=== PATIENT | female | born 1990 | race Caucasian/White ===

== ENCOUNTER 2020-07-02 20:01 | Day surgery (SDC) | payer BC ==
[2020-07-02 21:10] LABS: Amnisure Test No Membranes Rupture (No Rupture)
[2020-07-02] MEDS ORDERED: hydrALAZINE 20 MG/ML VIAL SLOW IVP PRN (21:44)
== END 2020-07-02 21:55 | disposition home health service (06) ==
LOC: CSHLD/OP 20:01
PROVIDERS: ATTEND Obstetrics & Gynecology
DX: O99.891 Other specified diseases and conditions complicating pregnancy (principal); N89.8 Other specified noninflammatory disorders of vagina; O34.219 Maternal care for unspecified type scar from previous cesarean delivery; O99.820 Streptococcus B carrier state complicating pregnancy; Z3A.39 39 weeks gestation of pregnancy
CPT/HCPCS: 84112; 99283

== ENCOUNTER 2020-07-06 11:31 | Outpatient (CLI) | payer BC ==
[2020-07-07 04:50] LABS: SARS-CoV-2 PCR by NAA Not Detected (NotDetected)
== END 2020-07-06 11:32 | disposition home or self-care (01) ==
LOC: CSHLAB 11:31
PROVIDERS: ATTEND Obstetrics & Gynecology
DX: Z20.822 Contact with and (suspected) exposure to COVID-19 (principal)
CPT/HCPCS: 87635; U0003; U0005

== ENCOUNTER 2020-07-08 05:30 | Inpatient (IN) | payer BC ==
[2020-07-08] MEDS ORDERED: hydrALAZINE 20 MG/ML VIAL SLOW IVP PRN ×2 (10:34→17:26)
[2020-07-08] MEDS ORDERED: Penicillin G Potassium 5 MILL.UNITS in Sodium Chloride 0.9% 100 ML IVPB SCH (10:34)
[2020-07-08] MEDS ORDERED: Promethazine HCl 25 MG/ML VIAL IM PRN (10:34)
[2020-07-08] MEDS ORDERED: HYDROcodone/Acetaminophen 5/325 mg Tablet PO PRN ×2 (10:34)
[2020-07-08] MEDS ORDERED: Ibuprofen 800 MG TAB PO PRN (10:34)
[2020-07-08] MEDS ORDERED: Ondansetron PF 4 MG/2 ML Vial IVP PRN ×2 (10:34→17:26)
[2020-07-08] MEDS ORDERED: Lidocaine 1% (PF) 30 ML VIAL SC PRN (10:34)
[2020-07-08] MEDS ORDERED: Butorphanol Tartrate 1 MG/ML VIAL SLOW IVP PRN (10:34)
[2020-07-08] MEDS ORDERED: Misoprostol 200 MCG TAB PR PRN (10:34)
[2020-07-08] MEDS ORDERED: Docusate 100 MG CAP PO PRN (10:34)
[2020-07-08] MEDS ORDERED: Diphenoxylate HCl/Atropine Tablet PO PRN ×2 (10:34)
[2020-07-08] MEDS ORDERED: Acetaminophen 500 MG TAB PO PRN (10:34)
[2020-07-08] MEDS ORDERED: Lactated Ringer's 1,000 ML IV SCH (10:34)
[2020-07-08 10:35] VITALS: BMI 25.7
[2020-07-08] MEDS ORDERED: Penicillin G Potassium 5 MILL.UNITS VIAL ONE (10:52)
[2020-07-08 10:58] LABS: Hemoglobin 12.4 g/dL (12.0-15.5); Mean Corpuscular HGB CONC 33.7 g/dL (32.0-36.0); Mean Corpuscular Hemoglobin 29.8 pg (27.0-33.0); Mean Corpuscular Volume 88.5 fl (81.6-98.3); Mean Platelet Volume 11.2 fl (7.4-10.4); Platelet Count 206 10x3/uL (150-450); RBC Distribution Width 13.3 % (11.5-14.5); Red Blood Cell (RBC) Count 4.16 10x6/uL (3.90-5.03); White Blood Cell (WBC) Count 7.7 10x3/uL (3.5-10.5)
[2020-07-08] MEDS ORDERED: NS w/ Oxytocin 30 units 500 ML IV PRN (11:01)
[2020-07-08] MEDS ORDERED: NS w/ Oxytocin 30 units 500 ML IVPB SCH ×2 (11:15)
[2020-07-08] MEDS ORDERED: Fentanyl 4 mcg/Bup 0.1% Cadd 100 ML ONE (11:15)
[2020-07-08 11:32] LABS: Hep B Surf Ag Non-Reactive S/CO (NonReactive)
[2020-07-08 11:33] LABS: Syphilis Antibody Nonreactive (Nonreactive); Syphilis Antibody Index 0.02 S/CO (<1.00 Non-Reactive)
[2020-07-08 11:34] LABS: HBSAg Index 0.16 S/CO (0-0.99)
[2020-07-08] MEDS ORDERED: NS w/ Oxytocin 30 units 500 ML ONE ×2 (12:49→15:25)
[2020-07-08] MEDS: Penicillin G 2.5 MILL.units 2.5 MILL.UNITS in Premix Bag 1 BAG IVPB SCH (14:16)
[2020-07-08] MEDS ORDERED: Bisacodyl 10 MG SUPP PR PRN (17:26)
[2020-07-08] MEDS ORDERED: Lanolin Ointment 7 GM TUBE TOP PRN (17:26)
[2020-07-08] MEDS ORDERED: Zolpidem Tartrate 5 MG TAB PO PRN (17:26)
[2020-07-08] MEDS ORDERED: Adacel (T-DAP) 0.5 ML SYRINGE IM ONE (17:26)
[2020-07-08] MEDS ORDERED: Misoprostol 200 MCG TAB VAG PRN (17:26)
[2020-07-08] MEDS ORDERED: Acetaminophen/Codeine 30-300mg Tablet PO PRN (17:26)
[2020-07-08] MEDS ORDERED: diphenhydrAMINE 25 MG CAP PO PRN (17:26)
[2020-07-08] MEDS ORDERED: Milk Of Magnesia 30 ML UDCUP PO PRN (17:26)
[2020-07-08] MEDS ORDERED: Preparation H Ointment 28 GM TUBE PR PRN (17:26)
[2020-07-08] MEDS ORDERED: Benzocaine-Menthol 82.5 ML CAN TOP PRN (17:26)
[2020-07-08] MEDS ORDERED: Acetaminophen 325 MG TAB PO PRN (17:27)
[2020-07-08] MEDS ORDERED: NS w/ Oxytocin 30 units 500 ML IV SCH (17:45)
[2020-07-08] MEDS ORDERED: Ondansetron PF 4 MG/2 ML Vial ONE (19:02)
[2020-07-08] MEDS: Docusate Calcium (SURFAK) 240 MG CAP PO SCH (23:07)
[2020-07-08] MEDS: Ibuprofen 800 MG TAB PO SCH (23:08)
[2020-07-09] MEDS: Penicillin G 2.5 MILL.units 2.5 MILL.UNITS in Premix Bag 1 BAG IVPB SCH (02:24)
[2020-07-09] MEDS: Ibuprofen 800 MG TAB PO SCH ×2 (05:12→15:50)
[2020-07-09 07:08] LABS: Hemoglobin 8.7 g/dL (12.0-15.5); Mean Corpuscular HGB CONC 33.2 g/dL (32.0-36.0); Mean Corpuscular Hemoglobin 29.7 pg (27.0-33.0); Mean Corpuscular Volume 89.4 fl (81.6-98.3); Mean Platelet Volume 11.3 fl (7.4-10.4); Platelet Count 170 10x3/uL (150-450); RBC Distribution Width 13.8 % (11.5-14.5); Red Blood Cell (RBC) Count 2.93 10x6/uL (3.90-5.03); White Blood Cell (WBC) Count 12.7 10x3/uL (3.5-10.5)
[2020-07-09] MEDS ORDERED: Prenatal Vitamin 1 TAB PO SCH (09:00)
[2020-07-09] MEDS: Ferrous Sulfate 325 MG TAB PO SCH ×2 (09:19→17:14)
[2020-07-09] MEDS: Docusate Calcium (SURFAK) 240 MG CAP PO SCH (09:19)
[2020-07-09] MEDS: Acetaminophen/Codeine 30-300mg Tablet PO PRN ×2 (09:29→17:24)
[2020-07-09 21:40] VITALS: BP 127/59; TEMP 97.6
== END 2020-07-09 20:34 | disposition home or self-care (01) | DRG 806 ==
LOC: CSHLD 09:52 → CSHPP 22:12
PROVIDERS: ADMIT Obstetrics & Gynecology; ATTEND Obstetrics & Gynecology
PROC: 10E0XZZ Delivery of Products of Conception, External Approach (ICD-10-PCS; principal; 2020-07-08)
PROC: 0KQM0ZZ Repair Perineum Muscle, Open Approach (ICD-10-PCS; 2020-07-08)
PROC: 10907ZC Drainage of Amniotic Fluid, Therapeutic from Products of Conception, Via Natural or Artificial Opening (ICD-10-PCS; 2020-07-08)
PROC: 3E033VJ Introduction of Other Hormone into Peripheral Vein, Percutaneous Approach (ICD-10-PCS; 2020-07-08)
DX: O48.0 Post-term pregnancy (principal); O23.593 Infection of other part of genital tract in pregnancy, third trimester; Z37.0 Single live birth; Z3A.40 40 weeks gestation of pregnancy; Z20.822 Contact with and (suspected) exposure to COVID-19; O34.211 Maternal care for low transverse scar from previous cesarean delivery; O99.824 Streptococcus B carrier state complicating childbirth; N76.0 Acute vaginitis; O70.1 Second degree perineal laceration during delivery; Z79.899 Other long term (current) drug therapy
CPT/HCPCS: 36415; 51702; 85027; 86780; 86850; 86900; 86901; 87340; 87635; J2405; J2540; J2590; U0003; U0005

== ENCOUNTER 2023-12-07 09:34 | Inpatient (IN) | payer BC, OTHER ==
[~2023-12-07 09:34] MED LIST: Lidocaine 2% MPF 10 ML AMP (For Epidural Use) ONE
[2023-12-07] MEDS ORDERED: Misoprostol 200 MCG TAB PR PRN (09:37)
[2023-12-07] MEDS ORDERED: fentaNYL 50 mcg/mL 1 mL Vial SLOW IVP PRN (09:37)
[2023-12-07] MEDS ORDERED: Methylergonovine 0.2 MG/ML VIAL IM PRN (09:37)
[2023-12-07] MEDS ORDERED: Carboprost 250 MCG/ML AMP IM PRN (09:37)
[2023-12-07] MEDS ORDERED: Promethazine HCl 25 MG/ML VIAL IM PRN ×2 (09:37→15:52)
[2023-12-07] MEDS ORDERED: hydrALAZINE 20 MG/ML VIAL SLOW IVP PRN ×2 (09:37→20:42)
[2023-12-07] MEDS ORDERED: HYDROcodone/Acetaminophen 5/325 mg Tablet PO PRN ×3 (09:37→18:29)
[2023-12-07] MEDS ORDERED: Ondansetron PF 4 MG/2 ML Vial IVP PRN ×3 (09:37→20:45)
[2023-12-07] MEDS ORDERED: Lidocaine 1% (PF) 30 ML VIAL SC PRN (09:37)
[2023-12-07] MEDS ORDERED: Ibuprofen 800 MG TAB PO PRN (09:37)
[2023-12-07] MEDS ORDERED: Docusate 100 MG CAP PO PRN (09:37)
[2023-12-07] MEDS ORDERED: Acetaminophen 500 MG TAB PO PRN (09:37)
[2023-12-07] MEDS ORDERED: Diphenoxylate HCl/Atropine Tablet PO PRN ×2 (09:37)
[2023-12-07] MEDS ORDERED: Oxytocin 30 units/NS 500 ML 500 ML IV SCH (09:45)
[2023-12-07] MEDS ORDERED: Lactated Ringer's 1,000 ML IV SCH (09:45)
[2023-12-07 10:30] VITALS: BMI 27.9
[2023-12-07] MEDS ORDERED: Acetaminophen 325 MG TAB PO PRN ×2 (10:40→15:52)
[2023-12-07] MEDS ORDERED: HYDROcodone/Acetaminophen 10/325 mg Tablet PO PRN (10:40)
[2023-12-07] MEDS: Penicillin G Potassium 5 MILL.UNITS in Sodium Chloride 0.9% 100 ML IVPB SCH (10:52)
[2023-12-07 10:55] LABS: Hematocrit 35.9 % (34.9-44.5); Hemoglobin 11.8 g/dL (12.0-15.5); Mean Corpuscular HGB CONC 32.9 g/dL (32.0-36.0); Mean Corpuscular Hemoglobin 28.7 pg (27.0-33.0); Mean Corpuscular Volume 87.3 fL (81.6-98.3); Mean Platelet Volume 10.7 fL (7.4-10.4); Platelet Count 207 10x3/uL (150-450); Red Blood Cell (RBC) Count 4.11 10x6/uL (3.90-5.03); White Blood Cell (WBC) Count 6.8 10x3/uL (3.5-10.5)
[2023-12-07 11:31] LABS: HIV (1/2) Antibody/Antigen Non-Reactive (NonReactive); HIV 1/2 INDEX 0.07 S/CO (<1.00); Hep B Surf Ag - L&D Non-Reactive S/CO (NonReactive)
[2023-12-07 11:32] LABS: Syphilis Antibody Nonreactive (Nonreactive); Syphilis Antibody Index 0.06 S/CO (<1.00 Non-Reactive)
[2023-12-07] MEDS: Oxytocin 30 units/NS 500 ML 500 ML IV SCH ×2 (13:45→16:28)
[2023-12-07] MEDS: fentaNYL/Ropivacaine Epidural 100 ML ONE (15:47)
[2023-12-07] MEDS: Penicillin G 2.5 MILL.units 2.5 MILL.UNITS in Premix 1 BAG IVPB SCH (15:47)
[2023-12-07] MEDS ORDERED: diphenhydrAMINE 50 MG/ML VIAL IVP PRN (15:52)
[2023-12-07] MEDS ORDERED: Naloxone HCl 0.4 mg/ml Vial IVP PRN ×2 (15:52)
[2023-12-07] MEDS ORDERED: Moisturizing Cream (Eucerin) 113 GM JAR TOP PRN (15:52)
[2023-12-07] MEDS ORDERED: Lactated Ringer's 500 ML IV PRN (15:52)
[2023-12-07] MEDS ORDERED: ePHEDrine Sulfate 50 MG/10 ML VIAL SLOW IVP PRN (15:52)
[2023-12-07] MEDS ORDERED: fentaNYL 2 mcg/Ropivacaine 0.2% Epidural 100 ML CADD EPIDURAL SCH (16:00)
[2023-12-07] MEDS ORDERED: Communication Order-Pharmacy FS SCH (16:00)
[2023-12-07] MEDS ORDERED: Witch Hazel 100 PAD JAR TOP PRN (18:29)
[2023-12-07 19:04] LABS: Hemoglobin 11.7 g/dL (12.0-15.5); Mean Corpuscular HGB CONC 34.4 g/dL (32.0-36.0); Mean Corpuscular Hemoglobin 29.9 pg (27.0-33.0); Mean Platelet Volume 10.7 fL (7.4-10.4); Platelet Count 205 10x3/uL (150-450); Red Blood Cell (RBC) Count 3.91 10x6/uL (3.90-5.03); White Blood Cell (WBC) Count 16.2 10x3/uL (3.5-10.5)
[2023-12-07] MEDS ORDERED: Misoprostol 200 MCG TAB VAG PRN (20:42)
[2023-12-07] MEDS ORDERED: Oxytocin 30 units/NS 500 ML 500 ML IVPB PRN (20:44)
[2023-12-07] MEDS ORDERED: Milk Of Magnesia 30 ML UDCUP PO PRN (20:45)
[2023-12-07] MEDS ORDERED: Bisacodyl 10 MG SUPP PR PRN (20:45)
[2023-12-07] MEDS ORDERED: Boostrix 0.5 ML (Tdap) VIAL (>/=7 yrs of age) IM SCH (20:45)
[2023-12-07] MEDS: Phytonadione Neonatal 1 MG/0.5 ML AMP ONE (20:49)
[2023-12-07] MEDS: fentaNYL 50 mcg/mL 1 mL Vial ONE (20:49)
[2023-12-07] MEDS: Erythromycin Base 0.5% Oint 1 GM TUBE ONE (20:49)
[2023-12-07] MEDS: Ibuprofen 800 MG TAB PO SCH (20:54)
[2023-12-07] MEDS: Docusate 100 MG CAP PO SCH (20:54)
[2023-12-07] MEDS: Benzocaine-Menthol 82.5 ML CAN TOP PRN (21:14)
[2023-12-08] MEDS: HYDROcodone/Acetaminophen 7.5/325 mg Tablet PO PRN (03:19)
[2023-12-08] MEDS ORDERED: Acetaminophen 325 MG TAB PO PRN (06:26)
[2023-12-08] MEDS: Ferrous Sulfate 325 MG TAB PO SCH (07:28)
[2023-12-08] MEDS: Prenatal Vitamin 1 TAB PO SCH (08:20)
[2023-12-08] MEDS: HYDROcodone/Acetaminophen 10/325 mg Tablet PO PRN (11:23)
[2023-12-08 16:18] VITALS: BP 120/70; TEMP 97.7
== END 2023-12-08 18:40 | disposition home or self-care (01) | DRG 807 ==
LOC: CSHLD 09:34 → CSHPED 19:00
PROVIDERS: ADMIT Obstetrics & Gynecology; ATTEND Obstetrics & Gynecology
PROC: 10E0XZZ Delivery of Products of Conception, External Approach (ICD-10-PCS; principal; 2023-12-07)
PROC: 10H07YZ Insertion of Other Device into Products of Conception, Via Natural or Artificial Opening (ICD-10-PCS; 2023-12-07)
DX: O42.02 Full-term premature rupture of membranes, onset of labor within 24 hours of rupture (principal); Z37.0 Single live birth; Z3A.40 40 weeks gestation of pregnancy; O48.0 Post-term pregnancy; O99.02 Anemia complicating childbirth; O99.824 Streptococcus B carrier state complicating childbirth; Z88.1 Allergy status to other antibiotic agents
CPT/HCPCS: 51702; 85027; 86780; 86850; 86900; 86901; 87340; 87389; J2540; J2590